=== PATIENT | male | born 1980 | race Caucasian/White ===

== ENCOUNTER 2019-10-19 04:08 | Emergency (ER) | payer SELFPAY ==
[~2019-10-19] VITALS: Ht 170.2 cm; Wt 61.2 kg
--- NOTE | 2019-10-19 04:20 | NUR ---
Patient BIB [facility] accompanied by [facility] for possible OD. Per report [facility] was attempting to give patient ticket for heroin possesion when he states he did not feel good and laid himself on the floor. Patient upon arrival refused to answer questions. No distress noted. Patient was given one dose of narcan on the field.
--- NOTE | 2019-10-19 04:28 | NUR ---
Patient ambulatory to room with steady gait.
--- NOTE | 2019-10-19 07:10 | NUR ---
Recieved pt in bed, very drawsy but arousable, VSS.
--- NOTE | 2019-10-19 07:49 | NUR ---
Arouse the pt and able to drink water. NAD noted.
--- NOTE | 2019-10-19 08:24 | NUR ---
Pt awake and walked to the bathroom w/ steady gait. Fluids provided.
--- NOTE | 2019-10-19 08:55 | NUR ---
Patient given written and verbal discharge instructions. Patient verbalizes understanding of instructions. Patient is ambulatory with steady gait. Refuses offer of [facility] placement. Patient given list of available shelters in surrounding area. Pt walked out of ER w/ steady gait.
[2019-10-19 08:56] VITALS: BP 122/78
== END 2019-10-19 08:58 | disposition home or self-care (01) ==
LOC: ER 04:10
DX: F11.10 Opioid abuse, uncomplicated (principal); Z59.0 Homelessness; R40.4 Transient alteration of awareness
CPT/HCPCS: A4663